=== PATIENT | male | born 1965 | race African-American/Black ===

== ENCOUNTER 2017-11-17 15:19 | Inpatient (IN) | payer MEDICAID ==
[~2017-11-17] VITALS: Ht 177.8 cm; Wt 131.0 kg
[2017-11-17] MEDS ORDERED: SODIUM CHLORIDE 0.9% 1,000 ML IV ONE (18:49)
[2017-11-17] MEDS ORDERED: ONDANSETRON HCL 4MG/2ML VIAL IV STA (18:49)
[2017-11-17] MEDS ORDERED: MORPHINE SULFATE 4 MG/ML CPJ (NOT FOR IM USE) IV STA (18:49)
[2017-11-17 19:41] LABS: HEMATOCRIT. 49.7 % (42.0-52.0); HEMOGLOBIN. 16.6 g/dL (14.0-18.0); LYMPHOCYTES % 26.3 % (20.0-50.0); MEAN CORPUSCULAR VOLUME 80.8 fL (80.0-94.0); MEAN PLATELET VOLUME 8.3 fl (7.4-10.4); MONOCYTES % 7.2 % (2.0-8.0); NEUTROPHILS % 63.5 % (40.0-76.0); PLATELET 220 x1000/uL (130-400); RED BLOOD CELL COUNT 6.15 mill/uL (4.7-6.1); RED CELL DISTRIBUTION WIDTH 13.7 % (11.6-14.6)
[2017-11-17 19:46] LABS: CHLORIDE 95 mEq/L (98-107)
[2017-11-17] MEDS ORDERED: SODIUM CHLORIDE 0.9% 1,000 ML IV SCH (20:35)
[2017-11-17 21:00] LABS: CLARITY URINE CLEAR (CLEAR); COLOR URINE YELLOW (YELLOW); KETONES URINE NEGATIVE (NEGATIVE); LEUKOCYTE ESTERASE URINE NEGATIVE (NEGATIVE); NITRITE URINE NEGATIVE (NEGATIVE); OCCULT BLOOD URINE NEGATIVE (NEGATIVE); PROTEIN URINE NEGATIVE (NEGATIVE)
[2017-11-17] MEDS ORDERED: IOHEXOL-300 100 ML BOTTLE ONE (21:30)
[2017-11-17 23:00] VITALS: BP 140/104
[2017-11-18] VITALS (7 sets, daily range): BP systolic 114–151; BP diastolic 70–90
[2017-11-18] MEDS ORDERED: DEXTROSE 50% WATER 50ML SYRINGE IV PRN (00:45)
[2017-11-18] MEDS ORDERED: ONDANSETRON HCL 4MG/2ML VIAL IV PRN (00:45)
[2017-11-18] MEDS: MORPHINE SULFATE 4 MG/ML CPJ (NOT FOR IM USE) IV PRN ×2 (00:58→21:23)
[2017-11-18] MEDS: DEXT 5%/0.45% NACL KCL 20MEQ/L 1,000 ML IV SCH ×2 (02:42→13:20)
[2017-11-18] MEDS ORDERED: HYDR12.529 MT (04:42)
[2017-11-18] MEDS ORDERED: FOLI0.4T2 MT (04:42)
[2017-11-18] MEDS ORDERED: RANI15SY MT (04:42)
[2017-11-18] MEDS ORDERED: INSU100I12 SQ (04:42)
[2017-11-18] MEDS ORDERED: AMLO2.5T45 MT (04:42)
[2017-11-18] MEDS ORDERED: ATOR10TA69 MT (04:42)
[2017-11-18] MEDS ORDERED: LISI2.5T47 MT (04:42)
[2017-11-18] MEDS ORDERED: ESOM20CA MT (04:42)
[2017-11-18] MEDS ORDERED: BLOOD SUGAR DIAGNOSTIC STRIP TEST SCH (06:00)
[2017-11-18] MEDS: BLOOD SUGAR DIAGNOSTIC STRIP TEST SCH ×4 (06:16→21:24)
[2017-11-18] MEDS: INSULIN LISPRO 100 UNITS/ML SUBCUT SCH ×4 (06:16→21:24)
[2017-11-18 07:23] LABS: BASOPHILS % 0.9 % (0.0-2.0); EOSINOPHILS % 3.1 % (0.0-5.0); HEMATOCRIT. 46.9 % (42.0-52.0); HEMOGLOBIN. 15.8 g/dL (14.0-18.0); LYMPHOCYTES % 20.3 % (20.0-50.0); MEAN CORPUSCULAR HEMOGLOBIN 27.3 pg (28.0-32.0); MEAN CORPUSCULAR VOLUME 80.9 fL (80.0-94.0); MEAN PLATELET VOLUME 8.4 fl (7.4-10.4); MONOCYTES % 6.1 % (2.0-8.0); NEUTROPHILS % 69.6 % (40.0-76.0); PLATELET 226 x1000/uL (130-400); RED CELL DISTRIBUTION WIDTH 13.5 % (11.6-14.6)
[2017-11-18 08:14] LABS: CHLORIDE 96 mEq/L (98-107)
[2017-11-18 08:55] LABS: AMYLASE 52 IU/L (25-115)
[2017-11-18 09:00] LABS: LDL CHOLESTEROL 72 mg/dL (5-100)
[2017-11-18] MEDS ORDERED: PANTOPRAZOLE SODIUM 40 MG/VIAL IV SCH (09:00)
[2017-11-18 09:03] LABS: HDL CHOLESTEROL 25 mg/dL (40-59)
[2017-11-18] MEDS ORDERED: CLONIDINE 0.1MG TABLET PO PRN (17:00)
[2017-11-18] MEDS ORDERED: INSULIN GLARGINE UD 100 UNITS/ML SYR SUBCUT SCH (22:00)
== END 2017-11-18 23:18 | disposition short-term general hospital (02) ==
LOC: ER 15:19 → 5WST 20:36 → ENRESERVDT 21:59 → ENRESERVTM 21:59 → ENRESERV 22:02 → CANRESERV 22:02 → EDRESERV 22:02
PROVIDERS: ADMIT Internal Medicine; ATTEND Internal Medicine
PROC: CF141ZZ Planar Nuclear Medicine Imaging of Gallbladder using Technetium 99m (Tc-99m) (ICD-10-PCS; principal; 2017-11-18)
DX: K80.42 Calculus of bile duct with acute cholecystitis without obstruction (principal); K85.90 Acute pancreatitis without necrosis or infection, unspecified; E87.8 Other disorders of electrolyte and fluid balance, not elsewhere classified; E87.1 Hypo-osmolality and hyponatremia; Z68.41 Body mass index [BMI] 40.0-44.9, adult; E11.9 Type 2 diabetes mellitus without complications; E66.01 Morbid (severe) obesity due to excess calories; I10 Essential (primary) hypertension; D18.09 Hemangioma of other sites; G47.33 Obstructive sleep apnea (adult) (pediatric); K21.9 Gastro-esophageal reflux disease without esophagitis; F17.210 Nicotine dependence, cigarettes, uncomplicated; Z71.3 Dietary counseling and surveillance; Z79.899 Other long term (current) drug therapy; Z79.4 Long term (current) use of insulin
CPT/HCPCS: 36415; 74177; 78227; 80053; 80061; 81003; 82150; 82962; 83036; 83605; 83690; 85025; A9537; C9113; J1815; J2270; J2405; J7030; Q9967